=== PATIENT | male | born 1995 | race Caucasian/White ===

== ENCOUNTER 2017-10-30 11:48 | Emergency (ER) | payer OTHER ==
[2017-10-30 11:58] VITALS: BP 124/84
--- NOTE | 2017-10-30 12:26 | ED Physician Documentation ---
History of Present Illness - Stated complaint Stated Complaint: THROAT DISCOMFORT - Chief complaint Chief Complaint: Heent - History obtained from History obtained from: Patient (pt here for evaluation after eating a chip last night then having throat pain. he states that he feels like there is something stuck in his throat. then he states that he has had body aches and subjective fevers and left shoulder discomfort last night.) - History of Present Illness Timing: Prior to arrival Review of Systems Constitutional: reports: Fever, Chills Eyes: denies: Loss of vision Throat: reports: Sore throat. denies: Swollen tonsils Cardiac: denies: Chest pain / pressure, Palpitations Respiratory: denies: Dyspnea, Cough GI: denies: Abdominal Pain, Nausea, Vomiting, Constipation, Diarrhea : denies: Dysuria, Frequency Skin: denies: Rash, Lesions Musculoskeletal: reports: Joint pain (left > right shoulder pain). denies: Neck pain, Back pain Neurologic: denies: Generalized weakness, Focal weakness, Syncope, Seizure PD PAST MEDICAL HISTORY - Past Medical History Past Medical History: No HEENT: Other - Past Surgical History Past Surgical History: Yes HEENT: Tonsil/Adenoidectomy - Present Medications Home Medications: Ambulatory Orders Medication Instructions Recorded Confirmed Multivitamin [Multiple Vitamins] 1 each PO DAILY 10/30/17 10/30/17 - Allergies Allergies/Adverse Reactions: Allergies Allergy/AdvReac Type Severity Reaction Status Date / Time No Known Drug Allergies Allergy Verified 10/30/17 11:57 - Social History Does the pt smoke?: Yes Smoking Status: Former smoker Does the pt drink ETOH?: Yes Does the pt have substance abuse?: No - POLST Patient has POLST: No PD ED PE NORMAL - Vitals Vital signs reviewed: Yes - General General: Alert and oriented X 3, No acute distress - HEENT HEENT: Atraumatic, Ears normal, Moist mucous membranes - Neck Neck: Supple, no meningeal sign, No adenopathy - Cardiac Cardiac: RRR, No murmur - Respiratory Respiratory: No respiratory distress - Abdomen Abdomen: Normal bowel sounds, Soft, Non tender - Back Back: No CVA TTP - Derm Derm: Normal color, Warm and dry, No rash - Extremities Extremities: No deformity, No tenderness to palpate - Neuro Neuro: Alert and oriented X 3 Eye Opening: Spontaneous Motor: Obeys Commands Verbal: Oriented GCS Score: 15 - Psych Psych: Normal mood, Normal affect Results - Vitals Vitals: Vital Signs - 24 hr 10/30/17 11:54 Temperature 37.7 C H Heart Rate 89 Respiratory 16 Rate Blood Pressure 124/84 H O2 Saturation 98 Oxygen O2 Source Room air PD MEDICAL DECISION MAKING - ED course Complexity details: reviewed old records, considered differential, d/w patient, d/w center lead consultant ED course: pt still able to tolerate oral intake. No FB seen on exam. pt with flu like symptoms. does not meet CDC criteria for testing or treatment. suspect eso abrasion from the chip he ate and possible flu. pt given return precautions. Departure - Departure Disposition: Home, Self Care Clinical Impression: Flu-like symptoms Condition: Good Follow-Up: primary, care provider [Other] Comments: Call your primary care provider for a follow up. increase your fluid intake. Tylenol for any body aches. Return to the ER for any new or worsening symptoms.
== END 2017-10-30 12:41 | disposition home or self-care (01) ==
LOC: ED 11:48
DX: R50.9 Fever, unspecified (principal); J02.9 Acute pharyngitis, unspecified; M25.512 Pain in left shoulder; M25.511 Pain in right shoulder
CPT/HCPCS: 99282